=== PATIENT | female | born 1950 | race Caucasian/White ===

== ENCOUNTER 2018-07-28 15:41 | Observation (INO) ==
[2018-07-28 16:15] LABS: Basophils % 0.1 %; Eosinophils # 0.5 K/mcL (0.0-0.6); Hematocrit 37.3 % (35.3-44.9); Hemoglobin 12.2 g/dL (11.5-15.4); Immature Granulocytes % 0.1 % (0-4); Lymphocytes # 1.3 K/mcL (0.6-4.6); Lymphocytes % 14.7 %; Mean Corpuscular HGB Conc 32.7 g/dL (31.6-35.5); Mean Corpuscular Hemoglobin 32.4 pg (28.0-33.3); Mean Corpuscular Volume 99.2 fL (83.0-100.0); Mean Platelet Volume 9.2 fL (9.4-12.4); Monocytes # 0.6 K/mcL (0.0-1.3); Monocytes % 6.7 %; Neutrophils # 6.3 K/mcL (1.6-8.9); Platelet Count 249 K/mcL (140-400); Red Blood Count 3.76 M/mcL (3.82-4.97); Red Cell Distribution Width 14.8 % (11.5-14.5); Segmented Neutrophils % 72.4 %
--- NOTE | 2018-07-28 16:37 | Emergency Department Note ---
Disposition Clinical Impression: Exercise intolerance Atrial fibrillation Qualifiers: Atrial fibrillation type: unspecified Qualified Code(s): I48.91 - Unspecified atrial fibrillation Dyspnea Qualifiers: Dyspnea type: dyspnea on exertion Qualified Code(s): R06.09 - Other forms of dyspnea Hypothyroid Qualifiers: Hypothyroidism type: unspecified Qualified Code(s): E03.9 - Hypothyroidism, unspecified Disposition: Admitted As Inpatient Condition: Fair Time of Disposition: 21:43 General Adult HPI - General Chief complaint: ED Arrhythmia/Palpitations Stated complaint: new onset A-fib Time Seen by Provider: 07/28/18 16:20 Source: patient Limitations: no limitations Nursing Notes Reviewed: Yes Vital Signs Reviewed: Yes - History of Present Illness HPI Narrative: 68-year-old female presents from home with bedside for evaluation of shortness of breath and exercise intolerance. Patient notes this is been persistent for the past 3+ months and progressively worsening. She has avoided evaluation thinking it would improve on its own. 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 Patient also notes increased bilateral lower extremity swelling. History of hypertension on metoprolol, hyperlipidemia, type 2 diabetes on metformin. No history of cardiac or pulmonary disease. No history of cardiac dysrhythmias. Has never smoked. ROS: Positive: Shortness of breath, exercise intolerance, lower extremity swelling Negative: Fever, chills, nausea, vomiting, chest pains, palpitations, diaphoresis, unusual back pain Pain Scale: 0 - Related Data Home Medications Medication Instructions Recorded Confirmed Aspirin [Lo-Dose Aspirin EC] 81 mg PO DAILY 05/30/17 07/28/18 Metformin HCl [Glucophage] 1,000 mg PO BID 05/30/17 07/28/18 Metoprolol Succinate 50 mg PO DAILY 05/30/17 07/28/18 Naproxen 500 mg PO BID 05/30/17 07/28/18 Oxybutynin [Ditropan] 10 mg PO BID 05/30/17 07/28/18 Ranitidine HCl [Acid Certified Diabetes Educator] 150 mg PO BID 05/30/17 07/28/18 carBAMazepine [Tegretol] 200 mg PO HS 05/30/17 07/28/18 carBAMazepine [Tegretol] 400 mg PO QAM 05/30/17 07/28/18 Docusate [Colace] 200 mg PO HS PRN 07/28/18 07/28/18 Furosemide [Lasix] 40 mg PO DAILY 07/28/18 07/28/18 Glimepiride [Amaryl] 4 mg PO DAILY 07/28/18 07/28/18 Lovastatin 40 mg PO QPM 07/28/18 07/28/18 Allergies Allergy/AdvReac Type Severity Reaction Status Date / Time propoxyphene [From Darvon] AdvReac Dizziness Verified 06/27/17 10:26 Uqbguqt-Lpv-Qeu Reductase AdvReac Cramping Verified 06/27/17 10:26 Inhibitor of the [Statins] Muscles All systems ED: reviewed and negative except as stated. Review of Systems: As Per HPI Past Medical History - Past Medical History Medical history: Reports: atrial fibrillation, diabetes, hyperlipidemia, hypertension, other Surgical history: Reports: other Psychiatric history: Reports: bipolar, schizophrenia - Social History Smoking Status: Never smoker Smokeless Tobacco Status: No Alcohol use: Reports: none Drug use: Reports: none Physical Exam Vital Signs Reviewed General: Patient is alert, oriented, and in no acute distress resting in the ED cot. She does have 4-5 word conversational dyspnea. Head: atraumatic, normocephalic Eye: normal appearance, PERRL, EOMI, no scleral icterus, no conjunctival injection ENT: mucous membranes moist, normal external ear exam Neck: normal inspection, trachea midline, full ROM Chest: normal inspection, symmetric chest rise Respiratory: Good respiratory effort. Bilateral breath sounds in the anterior and posterior lucas are clear without wheezing, crackles, or rhonchi. Cardiovascular: Regular rate and rhythm. No clicks, rubs, gallops, or murmors. Normal heart sounds. 2+ pitting edema bilaterally in the lower extremities. Abdomen: Bowel sounds present normoactive. Abdomen is soft, nondistended, and nontender. No guarding or rebound. No organomegaly noted. Musculoskeletal: Spontaneously moving all extremities. Skin: warm, dry Neuro: GCS 15. No focal neurologic deficits observed. Psych: Patient's affect is appropriate for situation. - General Limitations: no limitations General appearance: alert, in no apparent distress Course Course Narrative: Patient was dyspneic on transitioning from bedside wheelchair to the bed itself. EKG is concerning for new onset atrial fibrillation. She is incidentally rate controlled suspected from her metoprolol currently used as an antihypertensive. The patient is new onset A. fib and rate controlled, clinically concerned for possibly new onset CHF given her profound exercise intolerance. EKG dated 28 Jul 2018 at 16:09 interpreted as atrial fibrillation with rate of 86. No P waves. Irregular intervals. Compared to previous EKG dated 06/10/2017 showing new onset atrial fibrillation today. Serum hematology is unremarkable. Serum chemistry shows hypothyroidism with TSH 5.8. Free T3 and T4 ordered to assist in patient evaluation. Chest x-ray shows cardiomegaly otherwise unremarkable. I discussed the above with the admitting hospitalist, Dr. Kim, who agrees to accept the patient for continued evaluation monitoring for new onset A. fib as well as her dyspnea and exercise intolerance. Chest X-Ray 07/28/18 15:58 IMPRESSION: Cardiomegaly. No acute cardiopulmonary process. D/ / Andrew Johnson MD / Andrew Johnson MD Interpreting Provider: Andrew Johnson MD Vital Signs Temperature 98.0 F 07/28/18 15:50 Pulse Rate 84 07/28/18 15:50 Respiratory Rate 18 07/28/18 15:50 Blood Pressure 160/99 07/28/18 15:50 O2 Sat by Pulse Oximetry 99 07/28/18 15:50 Temperature 98.0 F 07/28/18 15:50 Pulse Rate 76 07/28/18 17:54 Respiratory Rate 24 07/28/18 20:20 Blood Pressure 164/118 07/28/18 20:20 O2 Sat by Pulse Oximetry 98 07/28/18 17:54 Oxygen Delivery Oxygen Delivery Room Air Medical Decision Making - Lab Data Result diagrams: 07/29/18 00:50 07/29/18 00:50 Lab Results 07/28/18 07/28/18 07/28/18 Range/Units 16:03 16:03 17:44 WBC 8.7 8.1 (4.3-11.1) K/mcL RBC 3.76 L 3.86 (3.82-4.97) M/mcL Hgb 12.2 12.4 (11.5-15.4) g/dL Hct 37.3 39.1 (35.3-44.9) % MCV 99.2 101.3 H (83.0-100.0) fL MCH 32.4 32.1 (28.0-33.3) pg MCHC 32.7 31.7 (31.6-35.5) g/dL RDW 14.8 H 15.1 H (11.5-14.5) % Plt Count 249 258 (140-400) K/mcL MPV 9.2 L 9.3 L (9.4-12.4) fL Immature Gran % 0.1 (0-4) % Seg Neutrophils % 72.4 % Lymphocytes % 14.7 % Monocytes % 6.7 % Eosinophils % 6.0 % Basophils % 0.1 % Neutrophils # 6.3 (1.6-8.9) K/mcL Lymphocytes # 1.3 (0.6-4.6) K/mcL Monocytes # 0.6 (0.0-1.3) K/mcL Eosinophils # 0.5 (0.0-0.6) K/mcL Basophils # 0.0 (0.0-0.2) K/mcL PT (9.4-12.1) Seconds INR Heparin Anti-Xa, Unfract (0.30-0.70) IU/mL Sodium 139 (136-145) mEq/L Potassium 4.6 (3.5-5.1) mEq/L Chloride 105 (98-107) mEq/L Carbon Dioxide 23 (23-29) mEq/L BUN 29 H (8-23) mg/dL Creatinine 0.96 (0.60-1.20) mg/dL Est GFR ( Amer) > 60 (> 60) Est GFR (Non-Af Amer) 58 L (> 60) BUN/Creatinine Ratio 30 H (6-26) Glucose 158 H (70-105) mg/dL Calculated Osmolality 297 (280-300) Calcium 9.9 (8.6-10.3) mg/dL Magnesium 1.7 (1.6-2.6) mg/dL Troponin I 0.03 (< 0.04) ng/mL TSH 5.810 H (0.340-5.600) mcIU/mL Free T4 0.80 (0.70-2.00) ng/dl Free T3 2.73 (2.50-3.90) pg/mL 07/28/18 Range/Units 17:44 WBC (4.3-11.1) K/mcL RBC (3.82-4.97) M/mcL Hgb (11.5-15.4) g/dL Hct (35.3-44.9) % MCV (83.0-100.0) fL MCH (28.0-33.3) pg MCHC (31.6-35.5) g/dL RDW (11.5-14.5) % Plt Count (140-400) K/mcL MPV (9.4-12.4) fL Immature Gran % (0-4) % Seg Neutrophils % % Lymphocytes % % Monocytes % % Eosinophils % % Basophils % % Neutrophils # (1.6-8.9) K/mcL Lymphocytes # (0.6-4.6) K/mcL Monocytes # (0.0-1.3) K/mcL Eosinophils # (0.0-0.6) K/mcL Basophils # (0.0-0.2) K/mcL PT 12.2 H (9.4-12.1) Seconds INR 1.1 Heparin Anti-Xa, Unfract 0.00 L (0.30-0.70) IU/mL Sodium (136-145) mEq/L Potassium (3.5-5.1) mEq/L Chloride (98-107) mEq/L Carbon Dioxide (23-29) mEq/L BUN (8-23) mg/dL Creatinine (0.60-1.20) mg/dL Est GFR ( Amer) (> 60) Est GFR (Non-Af Amer) (> 60) BUN/Creatinine Ratio (6-26) Glucose (70-105) mg/dL Calculated Osmolality (280-300) Calcium (8.6-10.3) mg/dL Magnesium (1.6-2.6) mg/dL Troponin I (< 0.04) ng/mL TSH (0.340-5.600) mcIU/mL Free T4 (0.70-2.00) ng/dl Free T3 (2.50-3.90) pg/mL Attestation Statement - Attestation Attestation: I have seen this patient with the resident physician, I have personally evaluated this patient. I had reviewed the chart and document dictation by the resident physician and aM in agreement with the information documented by the resident physician. Please see documentation by the resident physician for complete chart including past medical history, family medical history, review of systems, current history and physical and laboratory and imaging studies. I was present for all procedures, provided direct supervision for all procedures, was present for the entirety of all procedures and provided direct guidance during the procedures. Please see documentation by the resident physician for any procedures performed.
[2018-07-28 16:53] LABS: BUN/Creatinine Ratio 30 (6-26); Blood Urea Nitrogen 29 mg/dL (8-23); Calcium 9.9 mg/dL (8.6-10.3); Carbon Dioxide 23 mEq/L (23-29); Chloride 105 mEq/L (98-107); Glucose 158 mg/dL (70-105); Osmolality,Calculated 297 (280-300); Potassium 4.6 mEq/L (3.5-5.1); Sodium 139 mEq/L (136-145); Troponin I 0.03 ng/mL (< 0.04); eGFR For Non-African Americans 58 (> 60)
[2018-07-28] MEDS ORDERED: *HR* Heparin 5,000 UNIT/ML VIAL IVP ONE ×2 (17:22→17:33)
[2018-07-28] MEDS ORDERED: *HR* Heparin 5,000 UNIT/ML VIAL IVP PRN ×4 (17:22→17:33)
--- NOTE | 2018-07-28 17:24 | Emergency Department Note ---
Disposition Clinical Impression: Exercise intolerance Atrial fibrillation Qualifiers: Atrial fibrillation type: unspecified Qualified Code(s): I48.91 - Unspecified atrial fibrillation Dyspnea Qualifiers: Dyspnea type: dyspnea on exertion Qualified Code(s): R06.09 - Other forms of dyspnea Disposition: Admitted As Inpatient Condition: Fair Forms: ED Satisfaction Letter General Adult HPI - General Chief complaint: ED Arrhythmia/Palpitations Stated complaint: new onset A-fib Time Seen by Provider: 07/28/18 16:20 Source: patient Limitations: no limitations - History of Present Illness Pain Scale: 0 - Related Data Home Medications Medication Instructions Recorded Confirmed Aspirin [Lo-Dose Aspirin EC] 81 mg PO DAILY 05/30/17 06/27/17 Furosemide [Lasix] 20 mg PO DAILY PRN 05/30/17 06/27/17 Lovastatin [Mevacor] 20 mg PO HS 05/30/17 06/27/17 Metformin HCl [Glucophage] 1,000 mg PO BID 05/30/17 06/27/17 Metoprolol Succinate 50 mg PO DAILY 05/30/17 06/27/17 Naproxen 500 mg PO BID 05/30/17 06/27/17 Oxybutynin [Ditropan] 10 mg PO BID 05/30/17 06/27/17 Ranitidine HCl [Acid Novelties Sales Representative] 150 mg PO BID 05/30/17 06/27/17 carBAMazepine [Tegretol] 200 mg PO HS 05/30/17 06/27/17 carBAMazepine [Tegretol] 400 mg PO QAM 05/30/17 06/27/17 Allergies Allergy/AdvReac Type Severity Reaction Status Date / Time propoxyphene [From Darvon] AdvReac Dizziness Verified 06/27/17 10:26 Lsbjldi-Uua-Pax Reductase AdvReac Cramping Verified 06/27/17 10:26 Inhibitor of the [Statins] Muscles Past Medical History - Past Medical History Medical history: Reports: atrial fibrillation, diabetes, hyperlipidemia, hypertension, other Surgical history: Reports: other Psychiatric history: Reports: bipolar, schizophrenia - Social History Smoking Status: Never smoker Smokeless Tobacco Status: No Alcohol use: Reports: none Drug use: Reports: none Physical Exam - General Limitations: no limitations General appearance: alert, in no apparent distress Course Vital Signs Temperature 98.0 F 07/28/18 15:50 Pulse Rate 84 07/28/18 15:50 Respiratory Rate 18 07/28/18 15:50 Blood Pressure 160/99 07/28/18 15:50 O2 Sat by Pulse Oximetry 99 07/28/18 15:50 Temperature 98.0 F 07/28/18 15:50 Pulse Rate 101 07/28/18 16:27 Respiratory Rate 22 07/28/18 16:27 Blood Pressure 171/111 07/28/18 16:27 O2 Sat by Pulse Oximetry 99 07/28/18 16:27 Oxygen Delivery Oxygen Delivery Room Air Medical Decision Making - Lab Data Result diagrams: 07/28/18 16:03 07/28/18 16:03 Lab Results 07/28/18 07/28/18 Range/Units 16:03 16:03 WBC 8.7 (4.3-11.1) K/mcL RBC 3.76 L (3.82-4.97) M/mcL Hgb 12.2 (11.5-15.4) g/dL Hct 37.3 (35.3-44.9) % MCV 99.2 (83.0-100.0) fL MCH 32.4 (28.0-33.3) pg MCHC 32.7 (31.6-35.5) g/dL RDW 14.8 H (11.5-14.5) % Plt Count 249 (140-400) K/mcL MPV 9.2 L (9.4-12.4) fL Immature Gran % 0.1 (0-4) % Seg Neutrophils % 72.4 % Lymphocytes % 14.7 % Monocytes % 6.7 % Eosinophils % 6.0 % Basophils % 0.1 % Neutrophils # 6.3 (1.6-8.9) K/mcL Lymphocytes # 1.3 (0.6-4.6) K/mcL Monocytes # 0.6 (0.0-1.3) K/mcL Eosinophils # 0.5 (0.0-0.6) K/mcL Basophils # 0.0 (0.0-0.2) K/mcL Sodium 139 (136-145) mEq/L Potassium 4.6 (3.5-5.1) mEq/L Chloride 105 (98-107) mEq/L Carbon Dioxide 23 (23-29) mEq/L BUN 29 H (8-23) mg/dL Creatinine 0.96 (0.60-1.20) mg/dL Est GFR ( Amer) > 60 (> 60) Est GFR (Non-Af Amer) 58 L (> 60) BUN/Creatinine Ratio 30 H (6-26) Glucose 158 H (70-105) mg/dL Calculated Osmolality 297 (280-300) Calcium 9.9 (8.6-10.3) mg/dL Troponin I 0.03 (< 0.04) ng/mL TSH 5.810 H (0.340-5.600) mcIU/mL Attestation Statement - Attestation Attestation: I have seen this patient with the resident physician, I have personally evaluated this patient. I had reviewed the chart and document dictation by the resident physician and aM in agreement with the information documented by the resident physician. Please see documentation by the resident physician for complete chart including past medical history, family medical history, review of systems, current history and physical and laboratory and imaging studies. I was present for all procedures, provided direct supervision for all procedures, was present for the entirety of all procedures and provided direct guidance during the procedures. Please see documentation by the resident physician for any procedures performed. Patient presents emergency Department with chief complaint of 3 months of progressively increasing bilateral lower extremity edema exertional shortness of breath. She has chronic orthopnea and sleeps with CPAP no changes there. She has not had any chest pain. No specific palpitations. She denies fevers chills cough sputum production abdominal pain nausea or vomiting. Upon presentation, patient found to be in new onset atrial fibrillation although rate controlled, patient is on metoprolol for hypertension. EKG showed nonspecific T-wave abnormality without evidence of ST elevation or ST depression. A basic laboratory studies were within acceptable limits. Chest x-ray showed no acute findings. Patient is 68 years old history of hypertension diabetes high cholesterol with symptoms concerning for potential CHF with peripheral edema progressing over the last 3 months with worsening shortness of breath, she does appear conversationally dyspneic but is without hypoxia, I believe that likely this is related to new onset A. fib has had no recent cardiac evaluation and has not been to her doctor, she will be admitted for further evaluation and management of shortness of breath, new onset atrial fibrillation and peripheral edema. She is on aspirin every day she is not on any other blood thinner she has had no recent surgery travel or immobilization no unilateral swelling she is not hypoxic she is not tachycardic she has no pleuritic chest pain, and has no evidence currently to suggest pulmonary embolism, she does have new onset A. fib with symptoms now for 3 months, she will be started on heparin for new onset atrial fibrillation, further evaluation as necessary for further causes of short ness of breath in the hospital. Again she is not tachycardic she is not hypoxic, has no calf pain no pleuritic pain, and nothing clinically to suggest DVT or pulmonary embolism in the ER.
[2018-07-28] MEDS ORDERED: Heparin 25,000 UNIT/250 ML D5W 25,000 UNIT/250 ML IV.SOLN IVC SCH (17:30)
[2018-07-28 17:49] LABS: Magnesium 1.7 mg/dL (1.6-2.6)
[2018-07-28 17:54] LABS: Hematocrit 39.1 % (35.3-44.9); Hemoglobin 12.4 g/dL (11.5-15.4); Mean Corpuscular HGB Conc 31.7 g/dL (31.6-35.5); Mean Corpuscular Hemoglobin 32.1 pg (28.0-33.3); Mean Corpuscular Volume 101.3 fL (83.0-100.0); Mean Platelet Volume 9.3 fL (9.4-12.4); Platelet Count 258 K/mcL (140-400); Red Blood Count 3.86 M/mcL (3.82-4.97); Red Cell Distribution Width 15.1 % (11.5-14.5)
[2018-07-28 18:02] LABS: INR 1.1; Prothrombin Time 12.2 Seconds (9.4-12.1)
[2018-07-28] MEDS: Heparin 25,000 UNIT/250 ML D5W 25,000 UNIT/250 ML IV.SOLN IVC SCH (18:07)
[2018-07-28 18:33] LABS: Triiodothyronine (T3) Free 2.73 pg/mL (2.50-3.90)
[2018-07-28] MEDS ORDERED: Naloxone 0.4 MG/ML INJ IVP PRN (19:22)
[2018-07-28] MEDS ORDERED: Ondansetron 4 MG/2 ML VIAL IVP PRN (19:22)
[2018-07-28] MEDS ORDERED: Perflutren Lipid Microsphere 1.3 ML in 0.9 % Sodium Chloride 8.7 ML IVP ONE (20:26)
[2018-07-28] MEDS ORDERED: Insulin LISPRO 300 UNITS/3 ML VIAL SQ SCH (21:00)
[2018-07-28] MEDS ORDERED: carBAMazepine 200 MG TABLET PO SCH (21:00)
--- NOTE | 2018-07-28 21:06 | Internal Med History&Physical ---
Date of Encounter: 07/28/18 Time of Encounter: 19:45 Internal Medicine - H&P: HPI Chief complaint: Dyspnea on exertion Admitted From: Home History of present illness: Ms. Tejeda is a 68 year old female with history of morbid obesity, hypertension, diabetes, hyperlipidemia, sleep apnea on CPAP, who presented to the ED with 2 month history of progressive dyspnea. Worse on exertion, associated with intermittent palpitation without chest pain, and she also endorses worsening bilateral leg swelling. Denies any orthopnea or PND. No fever/chills, nausea/vomiting, diaphoresis, or GI/ symptoms. No history of CAD. In the ED, she was afebrile and hemodynamically stable. EKG incidentally noted A. fib with controlled ventricular rate without STT changes concerning for ischemia. Labwork otherwise were unremarkable with normal troponin. Mild macrocytosis noted. TSH 5.8 with normal free T4 and T3. She was started on heparin drip and admitted for further management. Past Med Surg Social Fam HX - Past Medical History Attestation: Yes The following information was validated with the patient. Medical history: diabetes, hyperlipidemia, hypertension, other Additional medical history: sleep apnea, increased cholesterol, overactive bladder, hypertension, aneurysm Psychiatric history: bipolar, schizophrenia - Past Surgical History Surgical History: other Additional surgical history: bilateral knee replacement, bladder tuck, colono scopy - Social History Smoking Status: Never smoker Smokeless Tobacco Status: No Alcohol use: none Drug use: none - Additional Family History Additional family history: No family history of premature CAD Internal Medicine - H&P: Meds Aspirin [Lo-Dose Aspirin EC] 81 mg PO DAILY 05/30/17 [History] Metformin HCl [Glucophage] 1,000 mg PO BID 05/30/17 [History] Metoprolol Succinate 50 mg PO DAILY 05/30/17 [History] Naproxen 500 mg PO BID 05/30/17 [History] Oxybutynin [Ditropan] 10 mg PO BID 05/30/17 [History] Ranitidine HCl [Acid Software Writer] 150 mg PO BID 05/30/17 [History] carBAMazepine [Tegretol] 200 mg PO HS 05/30/17 [History] carBAMazepine [Tegretol] 400 mg PO QAM 05/30/17 [History] Docusate [Colace] 200 mg PO HS PRN 07/28/18 [History] Furosemide [Lasix] 40 mg PO DAILY 07/28/18 [History] Glimepiride [Amaryl] 4 mg PO DAILY 07/28/18 [History] Lovastatin 40 mg PO QPM 07/28/18 [History] Allergy/AdvReac Type Severity Reaction Status Date / Time propoxyphene [From Darvon] AdvReac Dizziness Verified 06/27/17 10:26 [place]-Ocu-Xch Reductase AdvReac Cramping Verified 06/27/17 10:26 Inhibitor of the [Statins] Muscles All Systems PM: A 10-system review of systems was performed and is negative for pertinent findings except as documented above in the HPI. - Constitutional Vitals: Temp Pulse Resp BP Pulse Ox 98.0 F 76 24 164/118 98 07/28/18 15:50 07/28/18 17:54 07/28/18 20:20 07/28/18 20:20 07/28/18 17:54 Exam: General: Alert and oriented, mild distress. Obese HEENT:EOMI, pupils equal, round and reactive. Cardiovascular:Normal S1 & S2, No JVD. Pulse irregular with normal rate. 2+ pitting LE edema bilaterally Lungs: Diminished due to body habitus, unable to appreciate any rhonchi/Rales Abdomen:Soft, non-tender, no rigidity. Extremities:No deformity or joint swelling Neurological:Normal cognition and motor skills. Non-focal Skin:Normal color, no rash, no lesions. Pulses:Carotid and radial pulses normal +2. Rest of the physical exam is non contributory Internal Med - H&P Results - Labs CBC & Chem 7: 07/28/18 17:44 07/28/18 16:03 Labs: Short CBC 07/28/18 07/28/18 Range/Units 16:03 17:44 WBC 8.7 8.1 (4.3-11.1) K/mcL Hgb 12.2 12.4 (11.5-15.4) g/dL Hct 37.3 39.1 (35.3-44.9) % Plt Count 249 258 (140-400) K/mcL Neutrophils # 6.3 (1.6-8.9) K/mcL BMP 07/28/18 16:03 Sodium 139 Potassium 4.6 Chloride 105 Carbon Dioxide 23 BUN 29 H Creatinine 0.96 Glucose 158 H Calcium 9.9 Cardiac Enzymes 07/28/18 Range/Units 16:03 Troponin I 0.03 (< 0.04) ng/mL - Impressions ITS Impressions Chest X-Ray 07/28/18 15:58 IMPRESSION: Cardiomegaly. No acute cardiopulmonary process. D/ / Andrew Johnson MD / Andrew Johnson MD Interpreting Provider: Andrew Johnson MD - Assessment and Plan (1) Atrial fibrillation Current Visit: Yes Status: Acute Assessment and plan: Presented with progressively worsening dyspnea on exertion and found to be in new onset of A. fib with controlled ventricular rate (on bb at home) associated with possible decompensated heart failure, no prior echo CHADSVASC of 4 for age, sex, HTN, DM started on heparin gtt, continue Resume home dose of beta missy Monitor electrolytes on Lasix Echocardiogram Qualifiers: Atrial fibrillation type: unspecified Qualified Code(s): I48.91 - Unspecified atrial fibrillation (2) CHF (congestive heart failure) Current Visit: Yes Status: Acute Assessment and plan: Although her symptoms could represent symptomatic afib, it can also be consistent with mild decompensated heart failure Chest x-ray did not show any overt probably vascular congestion or pleural effusion. Patient is on room air saturating well but tachypneic Check BNP although it may not be accurate in the setting of morbid obesity Rule out ACS by trending troponin Echocardiogram Will give 1 dose of IV Lasix today and resume home dose from tomorrow morning Qualifiers: Heart failure type: unspecified Heart failure chronicity: acute Qualified Code(s): I50.9 - Heart failure, unspecified (3) Diabetes Current Visit: Yes Status: Chronic Assessment and plan: Hold off on home meds, sliding scale coverage Qualifiers: Diabetes mellitus type: type 2 Diabetes mellitus nursing home insulin use: without intermodal dispatcher use Diabetes mellitus complication status: with unspecified complications Qualified Code(s): E11.8 - Type 2 diabetes mellitus with unspecified complications (4) Sleep apnea Current Visit: Yes Status: Chronic Assessment and plan: CPAP at HS Qualifiers: Sleep apnea type: unspecified type Qualified Code(s): G47.30 - Sleep apnea, unspecified (5) Morbid obesity with BMI of 50.0-59.9, adult Current Visit: Yes Status: Chronic Assessment and plan: Lifestyle modifications emphasized (6) Hypothyroid Current Visit: Yes Status: Chronic Assessment and plan: TSH noted to be mildly elevated with normal free T4 and T3 Would not treat with levothyroxine in the setting of new onset of A. fib, repeat TSH outpatient in 4-6 weeks. Qualifiers: Hypothyroidism type: unspecified Qualified Code(s): E03.9 - Hypothyroidism, unspecified (7) DVT prophylaxis Current Visit: Yes Status: Acute Assessment and plan: On heparin drip - Time Spent With Patient Total time spent is greater than 50% in coordination of care (as documented) at patient's floor/unit and/or counseling patient: Greater than 35 minutes
[2018-07-28] MEDS ORDERED: Furosemide 40 MG/4 ML VIAL IVP ONE (21:07)
[2018-07-28] MEDS ORDERED: D5% in Water 1,000 ML IVC PRN (21:12)
[2018-07-28] MEDS ORDERED: Dextrose Gel 15 GM/37.5 ML TUBE PO PRN ×2 (21:12)
[2018-07-28] MEDS ORDERED: *HR* Dextrose 50 % in Water (Syg) 50 ML SYRINGE IVP PRN (21:12)
[2018-07-28] MEDS: Famotidine 20 MG TABLET PO SCH (22:16)
[2018-07-29 01:13] LABS: Basophils % 0.1 %; Eosinophils # 0.5 K/mcL (0.0-0.6); Eosinophils % 6.4 %; Hematocrit 36.6 % (35.3-44.9); Hemoglobin 11.7 g/dL (11.5-15.4); Immature Granulocytes % 0.3 % (0-4); Lymphocytes # 1.5 K/mcL (0.6-4.6); Lymphocytes % 18.7 %; Mean Corpuscular Hemoglobin 32.3 pg (28.0-33.3); Mean Corpuscular Volume 101.1 fL (83.0-100.0); Mean Platelet Volume 9.3 fL (9.4-12.4); Monocytes # 0.6 K/mcL (0.0-1.3); Neutrophils # 5.4 K/mcL (1.6-8.9); Platelet Count 272 K/mcL (140-400); Red Blood Count 3.62 M/mcL (3.82-4.97); Red Cell Distribution Width 15.1 % (11.5-14.5); Segmented Neutrophils % 67.5 %
[2018-07-29 01:34] LABS: BUN/Creatinine Ratio 27 (6-26); Blood Urea Nitrogen 26 mg/dL (8-23); Calcium 9.4 mg/dL (8.6-10.3); Carbon Dioxide 27 mEq/L (23-29); Chloride 103 mEq/L (98-107); Glucose 156 mg/dL (70-105); Magnesium 1.6 mg/dL (1.6-2.6); Osmolality,Calculated 296 (280-300); Potassium 3.9 mEq/L (3.5-5.1); Sodium 139 mEq/L (136-145); eGFR For Non-African Americans 57 (> 60)
[2018-07-29 02:21] LABS: Folate 18.9 ng/mL (3.0-16.0)
[2018-07-29] MEDS: Famotidine 20 MG TABLET PO SCH (07:56)
[2018-07-29] MEDS: Heparin 25,000 UNIT/250 ML D5W 25,000 UNIT/250 ML IV.SOLN IVC SCH (07:58)
[2018-07-29] MEDS: Insulin LISPRO 300 UNITS/3 ML VIAL SQ SCH ×2 (08:11→12:08)
[2018-07-29] MEDS ORDERED: Furosemide 40 MG TABLET PO SCH (09:00)
[2018-07-29] MEDS ORDERED: carBAMazepine 200 MG TABLET PO SCH (09:00)
[2018-07-29] MEDS ORDERED: Metoprolol XL (24 HR) Succ 50 MG TAB.ER.24H PO SCH (09:00)
[2018-07-29] MEDS ORDERED: Aspirin Enteric Coated 81 MG Tablet PO SCH (09:00)
[2018-07-29] MEDS ORDERED: *HR* Warfarin 5 MG TABLET PO ONE (15:32)
[2018-07-29] MEDS ORDERED: Furosemide 40 MG/4 ML VIAL IVP ONE (15:33)
[2018-07-29 15:42] VITALS: BP 157/82
--- NOTE | 2018-07-29 15:42 | Discharge Summary ---
- NOTES TO OUTPATIENT PROVIDER Notes to Outpatient Provider: f/u with PCP in one week. f/u with Cardiology Dr. Barker in 2-3 weeks. Gagease take Lasix 40mg PO BID x 5 days then continue Daily. Check daily weight, if you gain more than 2 lbs, take an extra dose of Lasix and call your PCP. Please take Coumadin 5 mg PO Daily x 2 days and go for PT / INR at [facility] on Friday . Coumadin clinic will f/u on your coumaidn further dosing Date of Encounter: 07/29/18 Time of Encounter: 15:40 - Discharge Diagnosis (1) Atrial fibrillation Priority: Primary Status: Acute Qualifiers: Atrial fibrillation type: unspecified Qualified Code(s): I48.91 - Unspecified atrial fibrillation (2) CHF (congestive heart failure) Priority: Primary Status: Acute Qualifiers: Heart failure type: diastolic Heart failure chronicity: acute Qualified Code(s): I50.31 - Acute diastolic (congestive) heart failure (3) Hypothyroid Priority: Secondary Status: Chronic Qualifiers: Hypothyroidism type: unspecified Qualified Code(s): E03.9 - Hypothyroidism, unspecified (4) Diabetes Priority: Secondary Status: Chronic Qualifiers: Diabetes mellitus type: type 2 Diabetes mellitus watermelon inspector insulin use: without watermelon inspector use Diabetes mellitus complication status: with unspecified complications Qualified Code(s): E11.8 - Type 2 diabetes mellitus with unspecified complications (5) Sleep apnea Priority: Secondary Status: Chronic Qualifiers: Sleep apnea type: unspecified type Qualified Code(s): G47.30 - Sleep apnea, unspecified (6) Morbid obesity with BMI of 50.0-59.9, adult Priority: Secondary Status: Chronic (7) DVT prophylaxis Priority: Secondary Status: Acute Hospital course: Ms. Tejeda is a 68 year old female with history of morbid obesity, hypertension, diabetes, hyperlipidemia, sleep apnea on CPAP and CHF pt presented to the ED with 2 month history of progressive worsening SOB and dyspnea. Worse on exertion, associated with intermittent palpitation without chest pain, and she also endorses worsening bilateral leg swelling. In the ER her EKG incidentally noted A. fib with controlled ventricular rate without STT changes concerning for ischemia. Lab work otherwise were unremarkable with normal troponin. She was admitted in the hospital and placed on surveillance monitor. Continued home medication metoprolol. Her serial troponin came back as negative. Patient heart rate well-controlled with metoprolol. She does have acute on chronic diastolic CHF exacerbation. She was given IV lasix, pt stated she is feeling better today. Her CHADSVASC score is 4 , so placed her on Coumadin for anti coag. Will d/c her home in stable condition today. For her Coumadin recommend to [facility] with Coumadin clinic. - Time Spent with Patient Total time spent providing and/or coordinating discharge services: - Discharge Medications Prescriptions: New Warfarin [Coumadin] 5 mg PO 1800 #30 tablet Continued Aspirin [Lo-Dose Aspirin EC] 81 mg PO DAILY carBAMazepine [Tegretol] 400 mg PO QAM carBAMazepine [Tegretol] 200 mg PO HS Metformin HCl [Glucophage] 1,000 mg PO BID Metoprolol Succinate 50 mg PO DAILY Oxybutynin [Ditropan] 10 mg PO BID Ranitidine HCl [Acid Liquid Fertilizer Servicer] 150 mg PO BID Docusate [Colace] 200 mg PO HS PRN PRN Reason: Constipation Glimepiride [Amaryl] 4 mg PO DAILY Lovastatin 40 mg PO QPM Changed Furosemide [Lasix] 40 mg PO BID #45 tablet Discontinued Naproxen 500 mg PO BID Home Medications: Aspirin [Lo-Dose Aspirin EC] 81 mg PO DAILY 05/30/17 [History] Metformin HCl [Glucophage] 1,000 mg PO BID 05/30/17 [History] Metoprolol Succinate 50 mg PO DAILY 05/30/17 [History] Oxybutynin [Ditropan] 10 mg PO BID 05/30/17 [History] Ranitidine HCl [Acid Liquid Fertilizer Servicer] 150 mg PO BID 05/30/17 [History] carBAMazepine [Tegretol] 200 mg PO HS 05/30/17 [History] carBAMazepine [Tegretol] 400 mg PO QAM 05/30/17 [History] Docusate [Colace] 200 mg PO HS PRN 07/28/18 [History] Glimepiride [Amaryl] 4 mg PO DAILY 07/28/18 [History] Lovastatin 40 mg PO QPM 07/28/18 [History] Furosemide [Lasix] 40 mg PO BID #45 tablet 07/29/18 [Rx] Warfarin [Coumadin] 5 mg PO 1800 #30 tablet 07/29/18 [Rx] Allergies/Adverse Reactions: Allergy/AdvReac Type Severity Reaction Status Date / Time propoxyphene [From Darvon] AdvReac Dizziness Verified 06/27/17 10:26 [id number]-Afa Reductase AdvReac Cramping Verified 06/27/17 10:26 Inhibitor of the [Statins] Muscles Date of admission: 07/28/18 19:57 Primary care physician: Marga Brewer CNP Consults: 07/28/18 19:24 Consult to Physical Therapy [CONS] Stat Comment: Evaluate, develop and implement POC Reason for Consult: morbid obesity, new onset A. fib, deconditioning Does patient have active BEDREST order?: No Is patient medically & hemodynamically stable?: Yes 07/29/18 10:08 Consult to Nurse Navigator [CONS] Routine Comment: CHF - Constitutional Vitals: Temp Pulse Resp BP Pulse Ox 97.7 F 86 16 169/104 95 07/29/18 11:39 07/29/18 11:39 07/29/18 11:39 07/29/18 11:39 07/29/18 11:39 General appearance: Present: A&O X 3, no acute distress, answers questions appropriately Exam: Gen: Alert, awake, Oriented to time,place and person Chest: Diminished breath sounds B/L, No wheezing, No crackles, No rales Heart: S1S2+ Afib, rate controlled, No murmurs Abd: Soft, NT, BS +, No organomegaly Ext: 1+ edema, pulses are palpable, No calf tenderness Neuro : Benign findings Skin: No rash. - Patient Status Disposition: Home, Self-Care Condition: Good Overall status at discharge: patient is back to baseline - Discharge Instructions Follow Up With: Marga Brewer CNP [Primary Care Provider] - Alex Barker DO [Partnered Physician] - - Diet and Activity Activity: increase activity as tolerated Diet: low salt diet
--- NOTE | 2018-07-29 22:03 | Electrocardiograph Report ---
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
== END 2018-07-29 17:32 | disposition home or self-care (01) ==
LOC: EMEROOARM 15:41 → 3BNU 15:41 → SUATTDRO 19:57 → 3BNU 20:21
PROVIDERS: ADMIT Internal Medicine; ATTEND Family Medicine

== ENCOUNTER 2021-07-07 09:32 | Inpatient (IN) ==
[2021-07-07] MEDS ORDERED: 0.9 % Sodium Chloride 1,000 ML ONE ×2 (10:30→17:37)
[2021-07-07] MEDS ORDERED: 0.9 % Sodium Chloride 500 ML IVC ONE ×2 (10:43→14:52)
[2021-07-07 10:59] LABS: Basophils % 0.1 %; Hematocrit 23.9 % (35.3-44.9); Hemoglobin 7.8 g/dL (11.5-15.4); Immature Granulocytes % 0.5 % (0-4); Lymphocytes # 1.8 K/mcL (0.6-4.6); Lymphocytes % 12.7 %; Mean Corpuscular HGB Conc 32.6 g/dL (31.6-35.5); Mean Corpuscular Hemoglobin 31.7 pg (28.0-33.3); Mean Corpuscular Volume 97.2 fL (83.0-100.0); Mean Platelet Volume 9.3 fL (9.4-12.4); Monocytes # 0.9 K/mcL (0.0-1.3); Neutrophils # 11.7 K/mcL (1.6-8.9); Nucleated Red Blood Cells 0.1 /100 WBC (0); Platelet Count 379 K/mcL (140-400); Red Blood Count 2.46 M/mcL (3.82-4.97); Red Cell Distribution Width 14.6 % (11.5-14.5); Segmented Neutrophils % 80.7 %; White Blood Count 14.5 K/mcL (4.3-11.1)
[2021-07-07 11:25] LABS: Bilirubin,Total 1.7 mg/dL (0.3-1.0); Calcium 6.8 mg/dL (8.6-10.3); Globulin 2.9 g/dL (2.4-3.5); Potassium 2.9 mEq/L (3.5-5.1); Total Protein 5.9 g/dL (6.4-8.9); Troponin I 0.06 ng/mL (< 0.04)
[2021-07-07 11:37] LABS: Thyroid Stimulating Hormone 2.398 mcIU/mL (0.340-5.600)
[2021-07-07] MEDS ORDERED: *HR* FentaNYL (PF) 100 MCG/2 ML VIAL IVP ONE ×5 (11:38→20:55)
[2021-07-07] MEDS ORDERED: Pantoprazole 40 MG VIAL IVP ONE (11:40)
[2021-07-07] MEDS ORDERED: Isovue-370 500 ML BOTTLE IVP ONE ×2 (11:56→18:12)
[2021-07-07] MEDS ORDERED: Heparin 25,000UNIT/250ML 1/2NS 25,000 UNIT/250 ML IV.SOLN ONE (12:35)
[2021-07-07 12:46] LABS: Magnesium 0.9 mg/dL (1.6-2.6)
[2021-07-07 13:10] LABS: Bacteria,Urine Few per hpf (None-Few); Bilirubin,Urine Negative (Negative); Blood,Urine Negative (Negative); Clarity,Urine Clear (Clear); Color,Urine Yellow (Yellow); Glucose,Urine (UA) Normal (Normal); Hyaline Casts,Urine Moderate per lpf (None Seen); Ketones,Urine Negative (Negative); Leukocyte Esterase,Urine Negative (Negative); Mucus,Urine Few per lpf (None-Few); Nitrite,Urine Negative (Negative); PH,Urine 5.5 pH Units (5.0-8.0); Protein,Urine 50 mg/dL (Neg-Trace); RBC,Urine 0-3 per hpf (0-3); Specific Gravity,Urine > 1.030 (1.010-1.025); Squamous Epithelial Cell,Urine Few per hpf (None-Few); Urobilinogen,Urine Normal (Normal)
[2021-07-07 14:36] LABS: VBG HCO3 18 mEq/L (21-27); VBG PCO2 32 mmHg (41-51); VBG PH 7.35 pH Units (7.32-7.42); VBG PO2 81 mmHg (25-50)
[2021-07-07] MEDS ORDERED: Magnesium Sulfate 1 GM/102 ML PIGGYBACK IVPB ONE (14:51)
[2021-07-07] MEDS ORDERED: Vancomycin 1,750 MG/517.5 ML IV.SOLN IVPB ONE (14:59)
[2021-07-07] MEDS ORDERED: Piperacillin/Tazobactam 3.375 GM in 0.9 % Sodium Chloride Mini Bag 100 ML IVPB ONE (15:00)
[2021-07-07] MEDS ORDERED: HUM PROTHROMBIN CPLX IVPB ONE (15:36)
[2021-07-07] MEDS ORDERED: [UNRECOGNIZED DRUG - OTHER] IVPB ONE (15:36)
[2021-07-07] MEDS ORDERED: WATER FOR INJ IVPB ONE (15:36)
[2021-07-07 16:28] LABS: ABG Base Excess -7 mEq/L (-2 to 3); ABG HCO3 16 mEq/L (21-27); ABG Oxygen Saturation 99 % (95-98); ABG PCO2 24 mmHg (35-45); ABG PH 7.44 pH Units (7.32-7.45); ABG PO2 138 mmHg (85-104); ABG TCO2 17 mEq/L (20-26)
[2021-07-07 17:28] LABS: Basophils % 0.2 %; Hematocrit 26.8 % (35.3-44.9); Hemoglobin 8.5 g/dL (11.5-15.4); Immature Granulocytes % 0.9 % (0-4); Lymphocytes # 1.6 K/mcL (0.6-4.6); Lymphocytes % 13.7 %; Mean Corpuscular HGB Conc 31.7 g/dL (31.6-35.5); Mean Corpuscular Hemoglobin 29.6 pg (28.0-33.3); Mean Corpuscular Volume 93.4 fL (83.0-100.0); Mean Platelet Volume 9.4 fL (9.4-12.4); Monocytes # 0.9 K/mcL (0.0-1.3); Monocytes % 7.4 %; Neutrophils # 9.1 K/mcL (1.6-8.9); Platelet Count 227 K/mcL (140-400); Red Blood Count 2.87 M/mcL (3.82-4.97); Red Cell Distribution Width 14.8 % (11.5-14.5); Segmented Neutrophils % 77.8 %; White Blood Count 11.7 K/mcL (4.3-11.1)
[2021-07-07] MEDS ORDERED: Calcium Gluconate 1gm/50mL 1 GM/50 ML BAG IVPB ONE (17:32)
[2021-07-07] MEDS ORDERED: 0.9 % Sodium Chloride 250 ML ONE (17:45)
[2021-07-07] MEDS ORDERED: Norepinephrine 4 MG/254 ML IV.SOLN IVC SCH (17:45)
[2021-07-07] MEDS: Norepinephrine 4 MG/254 ML IV.SOLN IVC SCH (17:45)
[2021-07-07] MEDS: Albumin Human 5% 12.5 GM/250 ML IV.SOLN IVC SCH ×3 (18:18→23:08)
[2021-07-07] MEDS ORDERED: Naloxone 0.4 MG/ML INJ IVP PRN (18:42)
[2021-07-07] MEDS ORDERED: *HR* OxyCODONE Immed Rel 5 MG TABLET PO PRN (18:42)
[2021-07-07] MEDS ORDERED: Acetaminophen 325 MG TABLET PO PRN (18:42)
[2021-07-07 18:57] LABS: Fibrinogen 288 mg/dL (169-393); INR 2.6; Prothrombin Time 28.5 Seconds (9.4-12.1)
[2021-07-07 19:06] LABS: Activated Partial Thrombo Time 41.3 Seconds (26.0-36.0)
[2021-07-07 19:07] LABS: D-Dimer 251 ng/mLFEU (0-500)
[2021-07-07] MEDS ORDERED: *HR* Phytonadione 5 MG TABLET PO ONE ×2 (20:00→22:32)
[2021-07-07] MEDS ORDERED: Dextrose 4 GM Chewable Tablets PO PRN ×2 (23:06)
[2021-07-07] MEDS ORDERED: *HR* Dextrose 50 % in Water (Syg) 50 ML SYRINGE IVP PRN (23:06)
[2021-07-07] MEDS ORDERED: D5% in Water 1,000 ML IVC PRN (23:06)
[2021-07-07] MEDS: Pantoprazole 40 MG VIAL IVC SCH (23:08)
[2021-07-07 23:53] LABS: Basophils % 0.1 %; Immature Granulocytes % 0.6 % (0-4); Lymphocytes # 1.8 K/mcL (0.6-4.6); Lymphocytes % 12.9 %; Mean Corpuscular HGB Conc 33.9 g/dL (31.6-35.5); Mean Corpuscular Hemoglobin 29.6 pg (28.0-33.3); Mean Platelet Volume 9.3 fL (9.4-12.4); Monocytes # 1.3 K/mcL (0.0-1.3); Monocytes % 9.3 %; Neutrophils # 10.7 K/mcL (1.6-8.9); Nucleated Red Blood Cells 0.4 /100 WBC (0); Platelet Count 241 K/mcL (140-400); Red Blood Count 3.55 M/mcL (3.82-4.97); Red Cell Distribution Width 15.8 % (11.5-14.5); Segmented Neutrophils % 77.1 %; White Blood Count 13.8 K/mcL (4.3-11.1)
[2021-07-07 23:58] LABS: Activated Partial Thrombo Time 40.6 Seconds (26.0-36.0)
[2021-07-08 00:09] LABS: Albumin 2.9 g/dL (3.5-5.7); Albumin/Globulin Ratio 1.3 (1.1-2.2); Bilirubin,Direct 0.8 mg/dL (0.0-0.2); Bilirubin,Indirect 1.1 mg/dL (0.0-1.0); Bilirubin,Total 1.9 mg/dL (0.3-1.0); Calcium 6.1 mg/dL (8.6-10.3); Globulin 2.2 g/dL (2.4-3.5); Potassium 2.8 mEq/L (3.5-5.1); Total Protein 5.1 g/dL (6.4-8.9)
[2021-07-08] MEDS ORDERED: Ringers Solution, Lactated 500 ML IVC ONE (00:23)
[2021-07-08 00:25] LABS: Hemoglobin 10.5 g/dL (11.5-15.4); Mean Corpuscular Volume 87.3 fL (83.0-100.0)
[2021-07-08 00:44] LABS: Prothrombin Time 43.7 Seconds (9.4-12.1)
[2021-07-08] MEDS: Piperacillin/Tazobactam 3.375 GM in 0.9 % Sodium Chloride Mini Bag 100 ML IVPB SCH ×3 (00:48→16:02)
[2021-07-08] MEDS: Albumin Human 5% 12.5 GM/250 ML IV.SOLN IVC SCH ×4 (00:49→23:00)
[2021-07-08 01:25] LABS: VBG Ionized Calcium 0.76 mmol/L (1.15-1.35)
[2021-07-08] MEDS ORDERED: 0.9 % Sodium Chloride 250 ML ONE ×2 (02:14→04:26)
[2021-07-08] MEDS ORDERED: Calcium Chloride 2,000 MG in 0.9 % Sodium Chloride 100 ML IVPB ONE ×2 (02:30→06:30)
[2021-07-08] MEDS: Norepinephrine 4 MG/254 ML IV.SOLN IVC SCH ×2 (05:51→13:57)
[2021-07-08 05:54] LABS: Basophils % 0.1 %; Eosinophils % 0.1 %; Hematocrit 27.2 % (35.3-44.9); Hemoglobin 9.2 g/dL (11.5-15.4); Immature Granulocytes % 0.6 % (0-4); Lymphocytes # 1.2 K/mcL (0.6-4.6); Lymphocytes % 7.7 %; Mean Corpuscular HGB Conc 33.8 g/dL (31.6-35.5); Mean Corpuscular Hemoglobin 29.3 pg (28.0-33.3); Mean Corpuscular Volume 86.6 fL (83.0-100.0); Mean Platelet Volume 8.9 fL (9.4-12.4); Monocytes # 1.3 K/mcL (0.0-1.3); Monocytes % 8.2 %; Neutrophils # 13.2 K/mcL (1.6-8.9); Nucleated Red Blood Cells 0.3 /100 WBC (0); Platelet Count 225 K/mcL (140-400); Red Blood Count 3.14 M/mcL (3.82-4.97); Red Cell Distribution Width 16.7 % (11.5-14.5); Segmented Neutrophils % 83.3 %; White Blood Count 15.9 K/mcL (4.3-11.1)
[2021-07-08 05:59] LABS: VBG Ionized Calcium 0.93 mmol/L (1.15-1.35)
[2021-07-08 06:03] LABS: INR 2.9; Prothrombin Time 32.2 Seconds (9.4-12.1)
[2021-07-08 06:14] LABS: Albumin 3.4 g/dL (3.5-5.7); Albumin/Globulin Ratio 1.7 (1.1-2.2); Bilirubin,Total 1.9 mg/dL (0.3-1.0); Calcium 7.4 mg/dL (8.6-10.3); Magnesium 1.8 mg/dL (1.6-2.6); Phosphorous 4.5 mg/dL (2.7-4.5); Potassium 3.4 mEq/L (3.5-5.1); Total Protein 5.4 g/dL (6.4-8.9)
[2021-07-08] MEDS ORDERED: 0.9 % Sodium Chloride 1,000 ML IVC ONE (06:26)
[2021-07-08] MEDS: Pantoprazole 40 MG VIAL IVC SCH ×2 (07:30→19:21)
[2021-07-08] MEDS ORDERED: *HR* Metoprolol 5 MG/5 ML VIAL IVP ONE ×2 (07:53)
[2021-07-08] MEDS ORDERED: Ondansetron 4 MG/2 ML VIAL IVP PRN (08:00)
[2021-07-08] MEDS ORDERED: Perflutren Lipid Microsphere 1.3 ML in 0.9 % Sodium Chloride 8.7 ML IVP PRN (10:54)
[2021-07-08] MEDS: *HR* Metoprolol 5 MG/5 ML VIAL IVP SCH ×2 (11:05→17:52)
[2021-07-08] MEDS: carBAMazepine 200 MG TABLET PO SCH (11:05)
[2021-07-08 11:44] LABS: ABG Ionized Calcium 1.05 mmol/L (1.15-1.35)
[2021-07-08 11:44] LABS: Hematocrit 26.6 % (35.3-44.9); Mean Corpuscular HGB Conc 33.8 g/dL (31.6-35.5); Mean Corpuscular Hemoglobin 29.5 pg (28.0-33.3); Mean Corpuscular Volume 87.2 fL (83.0-100.0); Mean Platelet Volume 9.2 fL (9.4-12.4); Platelet Count 260 K/mcL (140-400); Red Blood Count 3.05 M/mcL (3.82-4.97); Red Cell Distribution Width 17.1 % (11.5-14.5); White Blood Count 15.8 K/mcL (4.3-11.1)
[2021-07-08 11:52] LABS: INR 2.4; Prothrombin Time 27.1 Seconds (9.4-12.1)
[2021-07-08 11:56] LABS: Calcium 8.2 mg/dL (8.6-10.3); Potassium 3.4 mEq/L (3.5-5.1)
[2021-07-08 12:08] LABS: Sodium, Urine 20.5 mEq/L
[2021-07-08] MEDS: Calcium Gluconate 1gm/50mL 1 GM/50 ML BAG IVPB SCH ×2 (12:38→13:38)
[2021-07-08 18:19] LABS: VBG Ionized Calcium 1.06 mmol/L (1.15-1.35)
[2021-07-08 18:20] LABS: Hematocrit 24.9 % (35.3-44.9); Hemoglobin 8.4 g/dL (11.5-15.4)
[2021-07-08 18:38] LABS: Calcium 8.2 mg/dL (8.6-10.3); Potassium 3.6 mEq/L (3.5-5.1)
[2021-07-08] MEDS ORDERED: Calcium Gluconate 1gm/50mL 1 GM/50 ML BAG IVPB ONE (19:06)
[2021-07-08] MEDS ORDERED: Midazolam HCl 50 MG/50 ML IV.SOLN IVC SCH (21:45)
[2021-07-09] MEDS: *HR* Metoprolol 5 MG/5 ML VIAL IVP SCH ×5 (00:05→23:53)
[2021-07-09] MEDS: Piperacillin/Tazobactam 3.375 GM in 0.9 % Sodium Chloride Mini Bag 100 ML IVPB SCH ×2 (00:05→06:13)
[2021-07-09] MEDS: Norepinephrine 4 MG/254 ML IV.SOLN IVC SCH ×6 (00:22→21:19)
[2021-07-09] MEDS ORDERED: Vancomycin 1,250 MG/262.5 ML IV.SOLN IVPB ONE (01:00)
[2021-07-09 01:29] LABS: Magnesium 1.8 mg/dL (1.6-2.6); Potassium 3.6 mEq/L (3.5-5.1)
[2021-07-09] MEDS: Albumin Human 5% 12.5 GM/250 ML IV.SOLN IVC SCH ×5 (02:05→18:48)
[2021-07-09 04:22] LABS: VBG Ionized Calcium 1.08 mmol/L (1.15-1.35)
[2021-07-09 04:35] LABS: Basophils % 0.2 %; Eosinophils % 0.4 %; Hematocrit 23.4 % (35.3-44.9); Hemoglobin 7.7 g/dL (11.5-15.4); Lymphocytes # 0.9 K/mcL (0.6-4.6); Lymphocytes % 9.2 %; Mean Corpuscular HGB Conc 32.9 g/dL (31.6-35.5); Mean Corpuscular Hemoglobin 29.5 pg (28.0-33.3); Mean Corpuscular Volume 89.7 fL (83.0-100.0); Mean Platelet Volume 9.2 fL (9.4-12.4); Monocytes # 0.8 K/mcL (0.0-1.3); Monocytes % 8.4 %; Neutrophils # 7.5 K/mcL (1.6-8.9); Nucleated Red Blood Cells 0.6 /100 WBC (0); Platelet Count 220 K/mcL (140-400); Red Blood Count 2.61 M/mcL (3.82-4.97); Red Cell Distribution Width 17.2 % (11.5-14.5); Segmented Neutrophils % 80.8 %; White Blood Count 9.3 K/mcL (4.3-11.1)
[2021-07-09 04:39] LABS: INR 1.3; Prothrombin Time 14.1 Seconds (9.4-12.1)
[2021-07-09 04:49] LABS: Magnesium 1.8 mg/dL (1.6-2.6); Phosphorous 4.4 mg/dL (2.7-4.5)
[2021-07-09] MEDS ORDERED: Potassium Chloride Elixir 20 MEQ/15 ML UDC PO ONE (06:11)
[2021-07-09] MEDS: Calcium Gluconate 1gm/50mL 1 GM/50 ML BAG IVPB SCH ×2 (06:21→07:23)
[2021-07-09] MEDS: Pantoprazole 40 MG VIAL IVC SCH (08:40)
[2021-07-09] MEDS: carBAMazepine 200 MG TABLET PO SCH (08:40)
[2021-07-09] MEDS ORDERED: 0.9 % Sodium Chloride 1,000 ML ONE (09:48)
[2021-07-09 11:46] LABS: VBG Ionized Calcium 1.17 mmol/L (1.15-1.35)
[2021-07-09 12:07] LABS: Calcium 8.7 mg/dL (8.6-10.3); Magnesium 2.2 mg/dL (1.6-2.6); Phosphorous 3.9 mg/dL (2.7-4.5); Potassium 3.8 mEq/L (3.5-5.1)
[2021-07-09 15:21] LABS: Hematocrit 22.8 % (35.3-44.9); Hemoglobin 7.4 g/dL (11.5-15.4)
[2021-07-09] MEDS: cefTRIAXone 2,000 MG in 0.9 % Sodium Chloride 20 ML IVP SCH (18:04)
[2021-07-09] MEDS: Pantoprazole 40 MG VIAL IVP SCH (20:10)
[2021-07-09 20:47] LABS: Hematocrit 22.2 % (35.3-44.9); Hemoglobin 7.4 g/dL (11.5-15.4)
[2021-07-10 03:19] LABS: Hemoglobin 7.7 g/dL (11.5-15.4)
[2021-07-10 03:22] LABS: Albumin 3.9 g/dL (3.5-5.7); Albumin/Globulin Ratio 1.9 (1.1-2.2); Bilirubin,Total 1.4 mg/dL (0.3-1.0); Calcium 8.5 mg/dL (8.6-10.3); Globulin 2.1 g/dL (2.4-3.5); Potassium 3.4 mEq/L (3.5-5.1)
[2021-07-10] MEDS: *HR* Metoprolol 5 MG/5 ML VIAL IVP SCH ×3 (05:04→19:28)
[2021-07-10] MEDS: cefTRIAXone 2,000 MG in 0.9 % Sodium Chloride 20 ML IVP SCH (08:26)
[2021-07-10] MEDS: carBAMazepine 200 MG TABLET PO SCH (08:26)
[2021-07-10] MEDS: Pantoprazole 40 MG VIAL IVP SCH ×2 (08:27→20:54)
[2021-07-10] MEDS: Norepinephrine 4 MG/254 ML IV.SOLN IVC SCH (10:24)
[2021-07-10 10:51] LABS: Basophils % 0.1 %; Eosinophils # 0.2 K/mcL (0.0-0.6); Eosinophils % 1.8 %; Hematocrit 23.7 % (35.3-44.9); Hemoglobin 7.8 g/dL (11.5-15.4); Immature Granulocytes % 0.8 % (0-4); Lymphocytes # 0.8 K/mcL (0.6-4.6); Lymphocytes % 10.1 %; Mean Corpuscular HGB Conc 32.9 g/dL (31.6-35.5); Mean Corpuscular Hemoglobin 29.9 pg (28.0-33.3); Mean Corpuscular Volume 90.8 fL (83.0-100.0); Mean Platelet Volume 9.2 fL (9.4-12.4); Monocytes # 0.5 K/mcL (0.0-1.3); Monocytes % 6.6 %; Neutrophils # 6.6 K/mcL (1.6-8.9); Nucleated Red Blood Cells 2.1 /100 WBC (0); Platelet Count 208 K/mcL (140-400); Red Blood Count 2.61 M/mcL (3.82-4.97); Red Cell Distribution Width 17.3 % (11.5-14.5); Segmented Neutrophils % 80.6 %; White Blood Count 8.2 K/mcL (4.3-11.1)
[2021-07-10] MEDS ORDERED: Naloxone 0.4 MG/ML INJ IVP PRN (14:17)
[2021-07-10] MEDS ORDERED: Ondansetron 4 MG/2 ML VIAL IVP PRN (14:17)
[2021-07-10] MEDS ORDERED: Dextrose 4 GM Chewable Tablets PO PRN ×2 (14:17)
[2021-07-10] MEDS ORDERED: D5% in Water 1,000 ML IVC PRN (14:17)
[2021-07-10] MEDS ORDERED: Acetaminophen 325 MG TABLET PO PRN (14:17)
[2021-07-10] MEDS ORDERED: *HR* Dextrose 50 % in Water (Syg) 50 ML SYRINGE IVP PRN (14:17)
[2021-07-10] MEDS ORDERED: *HR* OxyCODONE Immed Rel 5 MG TABLET PO PRN (14:17)
[2021-07-10 19:14] LABS: Hematocrit 27.1 % (35.3-44.9); Hemoglobin 8.8 g/dL (11.5-15.4)
[2021-07-11] MEDS: *HR* Metoprolol 5 MG/5 ML VIAL IVP SCH ×3 (00:13→11:53)
[2021-07-11 01:20] LABS: Hemoglobin 8.7 g/dL (11.5-15.4)
[2021-07-11 01:30] LABS: INR 1.1; Prothrombin Time 12.6 Seconds (9.4-12.1)
[2021-07-11 01:33] LABS: Activated Partial Thrombo Time 25.8 Seconds (26.0-36.0)
[2021-07-11 07:38] LABS: Hematocrit 23.9 % (35.3-44.9); Hemoglobin 7.9 g/dL (11.5-15.4)
[2021-07-11 07:40] LABS: Calcium 8.6 mg/dL (8.6-10.3); Potassium 3.5 mEq/L (3.5-5.1)
[2021-07-11] MEDS: Pantoprazole 40 MG VIAL IVP SCH ×2 (07:44→20:42)
[2021-07-11] MEDS: carBAMazepine 200 MG TABLET PO SCH (07:44)
[2021-07-11] MEDS ORDERED: cefTRIAXone 2,000 MG in 0.9 % Sodium Chloride 20 ML IVP SCH (09:00)
[2021-07-11] MEDS ORDERED: *HR* Metoprolol 5 MG/5 ML VIAL IVP ONE (14:52)
[2021-07-11] MEDS ORDERED: *HR* Succinylcholine 200 MG/10 ML VIAL IVP ONE (14:56)
[2021-07-11] MEDS ORDERED: Lidocaine -MPF 2% 2 ML VIAL ONE (14:56)
[2021-07-11 16:53] LABS: Hematocrit 26.2 % (35.3-44.9); Hemoglobin 8.3 g/dL (11.5-15.4)
[2021-07-11 18:30] LABS: Hematocrit 26.4 % (35.3-44.9); Hemoglobin 8.5 g/dL (11.5-15.4)
[2021-07-11 20:41] LABS: Hematocrit 27.4 % (35.3-44.9); Hemoglobin 8.9 g/dL (11.5-15.4)
[2021-07-12 04:39] LABS: Basophils % 0.4 %; Eosinophils # 0.2 K/mcL (0.0-0.6); Eosinophils % 2.8 %; Hematocrit 25.8 % (35.3-44.9); Hemoglobin 8.3 g/dL (11.5-15.4); Immature Granulocytes % 1.4 % (0-4); Lymphocytes # 0.9 K/mcL (0.6-4.6); Lymphocytes % 11.6 %; Mean Corpuscular HGB Conc 32.2 g/dL (31.6-35.5); Mean Corpuscular Hemoglobin 29.9 pg (28.0-33.3); Mean Corpuscular Volume 92.8 fL (83.0-100.0); Mean Platelet Volume 9.1 fL (9.4-12.4); Monocytes # 0.7 K/mcL (0.0-1.3); Monocytes % 8.8 %; Nucleated Red Blood Cells 2.1 /100 WBC (0); Platelet Count 285 K/mcL (140-400); Red Blood Count 2.78 M/mcL (3.82-4.97); Red Cell Distribution Width 17.6 % (11.5-14.5)
[2021-07-12 04:54] LABS: Alanine Aminotransferase 10 Units/L (7-52); Albumin 3.4 g/dL (3.5-5.7); Albumin/Globulin Ratio 1.3 (1.1-2.2); Alkaline Phosphatase 73 Units/L (34-104); Aspartate Amino Transferase 18 Units/L (13-39); BUN/Creatinine Ratio 22 (6-26); Bilirubin,Total 1.8 mg/dL (0.3-1.0); Blood Urea Nitrogen 20 mg/dL (8-23); Calcium 8.5 mg/dL (8.6-10.3); Carbon Dioxide 21 mEq/L (23-29); Chloride 106 mEq/L (98-107); Globulin 2.6 g/dL (2.4-3.5); Glucose 146 mg/dL (70-105); Osmolality,Calculated 287 (280-300); Potassium 3.4 mEq/L (3.5-5.1); Sodium 136 mEq/L (136-145); eGFR For African Americans > 60 (> 60); eGFR For Non-African Americans 60 (> 60)
[2021-07-12] MEDS: Pantoprazole 40 MG VIAL IVP SCH (08:29)
[2021-07-12] MEDS: carBAMazepine 200 MG TABLET PO SCH (08:30)
[2021-07-12] MEDS ORDERED: Metoprolol XL (24 HR) Succ 50 MG TAB.ER.24H PO SCH (09:00)
[2021-07-12 09:48] LABS: Hematocrit 26.8 % (35.3-44.9); Hemoglobin 8.6 g/dL (11.5-15.4)
[2021-07-12 11:07] VITALS: PULSE 103; O2SAT 98
[2021-07-12 13:23] VITALS: BP 151/79; TEMP 97.6
[2021-07-12 14:44] LABS: Hemoglobin 8.5 g/dL (11.5-15.4)
== END 2021-07-12 15:50 | DRG 813 ==
LOC: EMEROOARM 09:32 → SUATTDRO 21:10 → ICNU 21:10 → 2NENU 07-10 14:06
PROVIDERS: ADMIT Family Medicine; ATTEND Family Medicine
PROC: ENDOEBX (2021-07-11 14:20)

== ENCOUNTER 2021-08-21 10:35 | Inpatient (IN) ==
[2021-08-21 11:44] LABS: Basophils % 0.4 %; Eosinophils # 0.1 K/mcL (0.0-0.6); Eosinophils % 0.9 %; Hematocrit 41.4 % (35.3-44.9); Hemoglobin 13.9 g/dL (11.5-15.4); Immature Granulocytes % 0.3 % (0-4); Lymphocytes # 1.4 K/mcL (0.6-4.6); Lymphocytes % 20.7 %; Mean Corpuscular HGB Conc 33.6 g/dL (31.6-35.5); Mean Corpuscular Volume 95.2 fL (83.0-100.0); Monocytes # 0.6 K/mcL (0.0-1.3); Monocytes % 9.2 %; Neutrophils # 4.8 K/mcL (1.6-8.9); Platelet Count 245 K/mcL (140-400); Red Blood Count 4.35 M/mcL (3.82-4.97); Red Cell Distribution Width 21.1 % (11.5-14.5); Segmented Neutrophils % 68.5 %
[2021-08-21] MEDS ORDERED: Isovue-370 500 ML BOTTLE IVP ONE (12:30)
[2021-08-21 13:06] LABS: Alanine Aminotransferase 37 Units/L (7-52); Albumin 3.4 g/dL (3.5-5.7); Albumin/Globulin Ratio 0.9 (1.1-2.2); Alkaline Phosphatase 82 Units/L (34-104); Aspartate Amino Transferase 56 Units/L (13-39); BUN/Creatinine Ratio 14 (6-26); Bilirubin,Total 2.7 mg/dL (0.3-1.0); Blood Urea Nitrogen 14 mg/dL (8-23); Calcium 7.4 mg/dL (8.6-10.3); Carbon Dioxide 27 mEq/L (23-29); Chloride 92 mEq/L (98-107); Globulin 3.6 g/dL (2.4-3.5); Glucose 113 mg/dL (70-105); Lipase 37 Units/L (11-82); Osmolality,Calculated 283 (280-300); Potassium 2.9 mEq/L (3.5-5.1); Sodium 136 mEq/L (136-145); eGFR For African Americans > 60 (> 60); eGFR For Non-African Americans 55 (> 60)
[2021-08-21] MEDS: Calcium Gluconate 1gm/50mL 1 GM/50 ML BAG IVPB SCH ×2 (14:19→18:13)
[2021-08-21] MEDS ORDERED: Naloxone 0.4 MG/ML INJ IVP PRN (14:46)
[2021-08-21] MEDS ORDERED: Melatonin 3 MG TABLET PO PRN (14:46)
[2021-08-21] MEDS: 0.9 % Sodium Chloride 1,000 ML IVC SCH ×2 (15:59→19:41)
[2021-08-21] MEDS: Metoprolol XL (24 HR) Succ 50 MG TAB.ER.24H PO SCH (18:27)
[2021-08-21] MEDS: carBAMazepine 200 MG TABLET PO SCH (21:05)
[2021-08-22 03:16] LABS: Basophils % 0.4 %; Eosinophils # 0.1 K/mcL (0.0-0.6); Eosinophils % 1.7 %; Hematocrit 37.2 % (35.3-44.9); Hemoglobin 12.4 g/dL (11.5-15.4); Immature Granulocytes % 0.3 % (0-4); Lymphocytes # 1.4 K/mcL (0.6-4.6); Lymphocytes % 19.6 %; Mean Corpuscular HGB Conc 33.3 g/dL (31.6-35.5); Mean Corpuscular Hemoglobin 31.6 pg (28.0-33.3); Mean Corpuscular Volume 94.7 fL (83.0-100.0); Mean Platelet Volume 9.6 fL (9.4-12.4); Monocytes # 0.7 K/mcL (0.0-1.3); Monocytes % 10.4 %; Neutrophils # 4.7 K/mcL (1.6-8.9); Platelet Count 288 K/mcL (140-400); Red Blood Count 3.93 M/mcL (3.82-4.97); Red Cell Distribution Width 20.5 % (11.5-14.5); Segmented Neutrophils % 67.6 %
[2021-08-22 03:42] LABS: BUN/Creatinine Ratio 11 (6-26); Blood Urea Nitrogen 10 mg/dL (8-23); Calcium 6.8 mg/dL (8.6-10.3); Carbon Dioxide 29 mEq/L (23-29); Chloride 93 mEq/L (98-107); Glucose 89 mg/dL (70-105); Magnesium 0.7 mg/dL (1.6-2.6); Osmolality,Calculated 281 (280-300); Sodium 136 mEq/L (136-145); eGFR For African Americans > 60 (> 60); eGFR For Non-African Americans 59 (> 60)
[2021-08-22] MEDS ORDERED: lisinopriL 5 MG TABLET PO SCH (09:00)
[2021-08-22] MEDS: carBAMazepine 200 MG TABLET PO SCH (09:20)
[2021-08-22] MEDS: Metoprolol XL (24 HR) Succ 50 MG TAB.ER.24H PO SCH (09:20)
[2021-08-22] MEDS: Pantoprazole 40 MG VIAL IVP SCH ×2 (09:26→17:05)
[2021-08-22] MEDS ORDERED: Potassium Chloride Elixir 20 MEQ/15 ML UDC PO SCH (10:00)
[2021-08-22] MEDS: Ondansetron 4 MG/2 ML VIAL IVP PRN ×2 (10:07→21:42)
[2021-08-22] MEDS ORDERED: Lidocaine -MPF 2% 2 ML VIAL ONE (12:36)
[2021-08-22] MEDS ORDERED: *HR* Propofol 200 MG/20 ML VIAL IVP ONE (12:36)
[2021-08-22] MEDS ORDERED: Melatonin 3 MG TABLET GTUBE PRN (14:15)
[2021-08-22] MEDS ORDERED: *HR* Metoprolol 5 MG/5 ML VIAL IVP ONE (14:37)
[2021-08-22] MEDS: Potassium Chloride Elixir 20 MEQ/15 ML UDC GTUBE SCH (21:21)
[2021-08-23 03:04] LABS: Basophils % 0.2 %; Eosinophils # 0.1 K/mcL (0.0-0.6); Eosinophils % 0.9 %; Hematocrit 36.7 % (35.3-44.9); Hemoglobin 12.3 g/dL (11.5-15.4); Immature Granulocytes % 0.4 % (0-4); Lymphocytes # 1.1 K/mcL (0.6-4.6); Lymphocytes % 10.5 %; Mean Corpuscular HGB Conc 33.5 g/dL (31.6-35.5); Mean Corpuscular Hemoglobin 32.4 pg (28.0-33.3); Mean Corpuscular Volume 96.6 fL (83.0-100.0); Mean Platelet Volume 9.6 fL (9.4-12.4); Monocytes # 0.6 K/mcL (0.0-1.3); Monocytes % 6.3 %; Neutrophils # 8.2 K/mcL (1.6-8.9); Nucleated Red Blood Cells 0.2 /100 WBC (0); Platelet Count 271 K/mcL (140-400); Red Cell Distribution Width 21.2 % (11.5-14.5); Segmented Neutrophils % 81.7 %; White Blood Count 10.1 K/mcL (4.3-11.1)
[2021-08-23 03:29] LABS: Magnesium 1.1 mg/dL (1.6-2.6); Phosphorous 1.9 mg/dL (2.7-4.5)
[2021-08-23 03:34] LABS: BUN/Creatinine Ratio 10 (6-26); Blood Urea Nitrogen 9 mg/dL (8-23); Calcium 6.8 mg/dL (8.6-10.3); Carbon Dioxide 26 mEq/L (23-29); Chloride 94 mEq/L (98-107); Glucose 143 mg/dL (70-105); Osmolality,Calculated 283 (280-300); Potassium 2.5 mEq/L (3.5-5.1); Sodium 136 mEq/L (136-145); eGFR For African Americans > 60 (> 60); eGFR For Non-African Americans > 60 (> 60)
[2021-08-23] MEDS: Pantoprazole 40 MG VIAL IVP SCH ×2 (06:55→16:53)
[2021-08-23] MEDS ORDERED: Potassium Phosphate 44 MEQ in 0.9 % Sodium Chloride 250 ML IVPB ONE (08:17)
[2021-08-23] MEDS ORDERED: Potassium Chloride Elixir 20 MEQ/15 ML UDC GTUBE SCH (09:00)
[2021-08-23] MEDS: lisinopriL 5 MG TABLET GTUBE SCH (09:22)
[2021-08-23] MEDS: Potassium Chloride Elixir 20 MEQ/15 ML UDC GTUBE SCH ×2 (09:22→23:18)
[2021-08-23] MEDS: Ondansetron 4 MG/2 ML VIAL IVP PRN ×3 (09:25→22:47)
[2021-08-24 04:59] LABS: Basophils % 0.3 %; Eosinophils # 0.2 K/mcL (0.0-0.6); Eosinophils % 3.1 %; Hematocrit 35.1 % (35.3-44.9); Hemoglobin 11.5 g/dL (11.5-15.4); Immature Granulocytes % 0.2 % (0-4); Lymphocytes % 16.1 %; Mean Corpuscular HGB Conc 32.8 g/dL (31.6-35.5); Mean Corpuscular Hemoglobin 32.1 pg (28.0-33.3); Mean Platelet Volume 9.6 fL (9.4-12.4); Monocytes # 0.6 K/mcL (0.0-1.3); Monocytes % 10.4 %; Neutrophils # 4.3 K/mcL (1.6-8.9); Platelet Count 241 K/mcL (140-400); Red Blood Count 3.58 M/mcL (3.82-4.97); Red Cell Distribution Width 21.4 % (11.5-14.5); Segmented Neutrophils % 69.9 %; White Blood Count 6.2 K/mcL (4.3-11.1)
[2021-08-24 05:19] LABS: BUN/Creatinine Ratio 13 (6-26); Blood Urea Nitrogen 12 mg/dL (8-23); Calcium 6.9 mg/dL (8.6-10.3); Carbon Dioxide 33 mEq/L (23-29); Chloride 99 mEq/L (98-107); Glucose 213 mg/dL (70-105); Magnesium 1.3 mg/dL (1.6-2.6); Osmolality,Calculated 294 (280-300); Phosphorous 1.5 mg/dL (2.7-4.5); Potassium 2.6 mEq/L (3.5-5.1); Sodium 139 mEq/L (136-145); eGFR For African Americans > 60 (> 60); eGFR For Non-African Americans > 60 (> 60)
[2021-08-24] MEDS: Pantoprazole 40 MG VIAL IVP SCH (06:54)
[2021-08-24] MEDS ORDERED: Potassium Phosphate 44 MEQ in 0.9 % Sodium Chloride 250 ML IVPB ONE (07:47)
[2021-08-24] MEDS: lisinopriL 5 MG TABLET GTUBE SCH (08:28)
[2021-08-24] MEDS: Potassium Chloride Elixir 20 MEQ/15 ML UDC GTUBE SCH ×2 (08:28→21:23)
[2021-08-24] MEDS: Ondansetron 4 MG/2 ML VIAL IVP PRN ×2 (08:28→20:10)
[2021-08-25] MEDS: lisinopriL 5 MG TABLET GTUBE SCH (09:41)
[2021-08-25] MEDS: Potassium Chloride Elixir 20 MEQ/15 ML UDC GTUBE SCH (09:41)
[2021-08-25 11:58] LABS: Basophils % 0.4 %; Eosinophils # 0.2 K/mcL (0.0-0.6); Hematocrit 37.6 % (35.3-44.9); Immature Granulocytes % 0.2 % (0-4); Lymphocytes # 1.1 K/mcL (0.6-4.6); Lymphocytes % 20.4 %; Mean Corpuscular HGB Conc 31.9 g/dL (31.6-35.5); Mean Corpuscular Hemoglobin 31.8 pg (28.0-33.3); Mean Corpuscular Volume 99.7 fL (83.0-100.0); Mean Platelet Volume 9.9 fL (9.4-12.4); Monocytes # 0.4 K/mcL (0.0-1.3); Monocytes % 7.8 %; Neutrophils # 3.6 K/mcL (1.6-8.9); Nucleated Red Blood Cells 0.4 /100 WBC (0); Platelet Count 245 K/mcL (140-400); Red Blood Count 3.77 M/mcL (3.82-4.97); Red Cell Distribution Width 21.6 % (11.5-14.5); Segmented Neutrophils % 68.2 %; White Blood Count 5.3 K/mcL (4.3-11.1)
[2021-08-25 12:24] LABS: BUN/Creatinine Ratio 14 (6-26); Blood Urea Nitrogen 12 mg/dL (8-23); Calcium 7.1 mg/dL (8.6-10.3); Carbon Dioxide 28 mEq/L (23-29); Chloride 99 mEq/L (98-107); Glucose 219 mg/dL (70-105); Magnesium 1.4 mg/dL (1.6-2.6); Osmolality,Calculated 286 (280-300); Phosphorous 1.7 mg/dL (2.7-4.5); Potassium 3.7 mEq/L (3.5-5.1); Sodium 135 mEq/L (136-145); eGFR For African Americans > 60 (> 60); eGFR For Non-African Americans > 60 (> 60)
[2021-08-25] MEDS ORDERED: Potassium Phosphate 44 MEQ in 0.9 % Sodium Chloride 250 ML IVPB ONE (12:33)
[2021-08-26 07:01] LABS: BUN/Creatinine Ratio 15 (6-26); Blood Urea Nitrogen 11 mg/dL (8-23); Calcium 7.6 mg/dL (8.6-10.3); Carbon Dioxide 27 mEq/L (23-29); Chloride 99 mEq/L (98-107); Glucose 146 mg/dL (70-105); Magnesium 1.5 mg/dL (1.6-2.6); Osmolality,Calculated 284 (280-300); Phosphorous 2.7 mg/dL (2.7-4.5); Sodium 136 mEq/L (136-145); eGFR For African Americans > 60 (> 60); eGFR For Non-African Americans > 60 (> 60)
[2021-08-26] MEDS: lisinopriL 5 MG TABLET GTUBE SCH (08:59)
[2021-08-26] MEDS ORDERED: Magnesium Oxide 400 MG TABLET PO SCH (09:00)
[2021-08-26 11:38] VITALS: BP 131/79; PULSE 80; TEMP 97.4; O2SAT 95
== END 2021-08-26 15:08 | disposition home or self-care (01) | DRG 392 ==
LOC: EMEROOARM 10:35 → 3ANU 10:35 → SUATTDRO 14:34 → 3ANU 15:29
PROVIDERS: ADMIT Internal Medicine; ATTEND Family Medicine
PROC: ENDOEBX (2021-08-22 14:15)

== ENCOUNTER 2021-09-27 20:26 | Inpatient (IN) ==
[2021-09-27 21:24] LABS: Basophils % 0.5 %; Eosinophils # 0.1 K/mcL (0.0-0.6); Eosinophils % 0.8 %; Hematocrit 41.8 % (35.3-44.9); Hemoglobin 14.4 g/dL (11.5-15.4); Immature Granulocytes % 0.2 % (0-4); Lymphocytes # 1.7 K/mcL (0.6-4.6); Lymphocytes % 26.6 %; Mean Corpuscular HGB Conc 34.4 g/dL (31.6-35.5); Mean Corpuscular Hemoglobin 32.4 pg (28.0-33.3); Mean Corpuscular Volume 93.9 fL (83.0-100.0); Monocytes # 0.6 K/mcL (0.0-1.3); Monocytes % 9.4 %; Platelet Count 260 K/mcL (140-400); Red Blood Count 4.45 M/mcL (3.82-4.97); Segmented Neutrophils % 62.5 %; White Blood Count 6.5 K/mcL (4.3-11.1)
[2021-09-27 21:46] LABS: Calcium 8.1 mg/dL (8.6-10.3); Potassium 2.1 mEq/L (3.5-5.1)
[2021-09-27] MEDS ORDERED: Potassium Chloride Elixir 20 MEQ/15 ML UDC PO ONE (22:00)
[2021-09-27 23:02] LABS: Magnesium 0.9 mg/dL (1.6-2.6)
[2021-09-27] MEDS ORDERED: 0.9 % Sodium Chloride 1,000 ML ONE (23:03)
[2021-09-27] MEDS ORDERED: Ondansetron 4 MG/2 ML VIAL IVP ONE (23:50)
[2021-09-28] MEDS ORDERED: Naloxone 0.4 MG/ML INJ IVP PRN (01:34)
[2021-09-28] MEDS ORDERED: Ondansetron 4 MG/2 ML VIAL IVP PRN (01:34)
[2021-09-28] MEDS ORDERED: Acetaminophen 325 MG TABLET PO PRN (01:34)
[2021-09-28] MEDS ORDERED: Melatonin 3 MG TABLET PO PRN (01:34)
[2021-09-28] MEDS ORDERED: Magnesium Sulfate 1 GM/102 ML PIGGYBACK IVPB ONE (02:32)
[2021-09-28] MEDS ORDERED: D5% in Water 1,000 ML IVC PRN (02:37)
[2021-09-28] MEDS ORDERED: Dextrose Gel 15 GM/37.5 ML TUBE PO PRN ×2 (02:37)
[2021-09-28] MEDS ORDERED: *HR* Dextrose 50 % in Water (Syg) 50 ML SYRINGE IVP PRN (02:37)
[2021-09-28 03:02] LABS: Calcium 7.6 mg/dL (8.6-10.3); Potassium 2.8 mEq/L (3.5-5.1)
[2021-09-28] MEDS ORDERED: Calcium Gluconate 1gm/50mL 1 GM/50 ML BAG IVPB ONE (04:59)
[2021-09-28] MEDS: 0.9 % Sodium Chloride w KCl 40 MEQ/1,000 ML MLS IVC SCH ×2 (05:08→10:34)
[2021-09-28] MEDS: Insulin LISPRO 300 UNITS/3 ML VIAL SUBQ SCH ×4 (07:11→20:27)
[2021-09-28 08:29] LABS: Basophils % 0.1 %; Eosinophils # 0.1 K/mcL (0.0-0.6); Eosinophils % 0.7 %; Hematocrit 41.5 % (35.3-44.9); Hemoglobin 14.1 g/dL (11.5-15.4); Immature Granulocytes % 0.1 % (0-4); Lymphocytes # 1.7 K/mcL (0.6-4.6); Lymphocytes % 24.6 %; Mean Corpuscular Hemoglobin 32.9 pg (28.0-33.3); Mean Corpuscular Volume 96.7 fL (83.0-100.0); Mean Platelet Volume 9.5 fL (9.4-12.4); Monocytes # 0.6 K/mcL (0.0-1.3); Neutrophils # 4.5 K/mcL (1.6-8.9); Platelet Count 254 K/mcL (140-400); Red Blood Count 4.29 M/mcL (3.82-4.97); Red Cell Distribution Width 17.1 % (11.5-14.5); Segmented Neutrophils % 65.5 %; White Blood Count 6.9 K/mcL (4.3-11.1)
[2021-09-28 08:54] LABS: Albumin 3.1 g/dL (3.5-5.7); Calcium 7.6 mg/dL (8.6-10.3); Potassium 2.5 mEq/L (3.5-5.1)
[2021-09-28] MEDS ORDERED: Potassium Chloride Elixir 20 MEQ/15 ML UDC GTUBE ONE (08:57)
[2021-09-28 09:05] LABS: Bilirubin,Total 1.2 mg/dL (0.3-1.0); Globulin 3.2 g/dL (2.4-3.5); Magnesium 1.1 mg/dL (1.6-2.6); Phosphorous 1.8 mg/dL (2.7-4.5); Total Protein 6.3 g/dL (6.4-8.9)
[2021-09-28] MEDS ORDERED: Potassium Chloride Elixir 20 MEQ/15 ML UDC PO ONE (09:15)
[2021-09-28 18:55] LABS: Calcium 7.6 mg/dL (8.6-10.3); Potassium 3.5 mEq/L (3.5-5.1)
[2021-09-28] MEDS ORDERED: *HR* Metoprolol 5 MG/5 ML VIAL IVP ONE (23:27)
[2021-09-29 03:12] LABS: Hematocrit 36.5 % (35.3-44.9); Mean Corpuscular HGB Conc 34.2 g/dL (31.6-35.5); Mean Corpuscular Hemoglobin 32.8 pg (28.0-33.3); Mean Corpuscular Volume 95.8 fL (83.0-100.0); Mean Platelet Volume 9.7 fL (9.4-12.4); Platelet Count 201 K/mcL (140-400); Red Blood Count 3.81 M/mcL (3.82-4.97); Red Cell Distribution Width 17.4 % (11.5-14.5); White Blood Count 6.4 K/mcL (4.3-11.1)
[2021-09-29 03:13] LABS: Hemoglobin 12.5 g/dL (11.5-15.4)
[2021-09-29 03:21] LABS: BUN/Creatinine Ratio 14 (6-26); Blood Urea Nitrogen 15 mg/dL (8-23); Calcium 7.6 mg/dL (8.6-10.3); Carbon Dioxide 24 mEq/L (23-29); Chloride 101 mEq/L (98-107); Glucose 172 mg/dL (70-105); Magnesium 1.9 mg/dL (1.6-2.6); Osmolality,Calculated 285 (280-300); Phosphorous 1.6 mg/dL (2.7-4.5); Potassium 2.9 mEq/L (3.5-5.1); Sodium 135 mEq/L (136-145); eGFR For African Americans > 60 (> 60); eGFR For Non-African Americans 51 (> 60)
[2021-09-29 08:01] LABS: Monocytes # 0.4 K/mcL (0.0-1.3); Platelet Estimate Normal (Normal)
[2021-09-29] MEDS: Insulin LISPRO 300 UNITS/3 ML VIAL SUBQ SCH ×4 (08:29→19:55)
[2021-09-29] MEDS: lisinopriL 5 MG TABLET PO SCH (08:31)
[2021-09-29] MEDS: Metoprolol XL (24 HR) Succ 50 MG TAB.ER.24H PO SCH (08:33)
[2021-09-29] MEDS: Potassium Chloride Elixir 20 MEQ/15 ML UDC GTUBE SCH ×2 (09:11→13:15)
[2021-09-29] MEDS: carBAMazepine 200 MG TABLET PO SCH (16:42)
[2021-09-30 01:56] LABS: BUN/Creatinine Ratio 14 (6-26); Basophils % 0.4 %; Blood Urea Nitrogen 13 mg/dL (8-23); Calcium 7.9 mg/dL (8.6-10.3); Carbon Dioxide 23 mEq/L (23-29); Chloride 100 mEq/L (98-107); Eosinophils # 0.2 K/mcL (0.0-0.6); Eosinophils % 3.6 %; Glucose 174 mg/dL (70-105); Hemoglobin 11.5 g/dL (11.5-15.4); Immature Granulocytes % 0.4 % (0-4); Lymphocytes # 1.3 K/mcL (0.6-4.6); Lymphocytes % 25.8 %; Mean Corpuscular HGB Conc 33.8 g/dL (31.6-35.5); Mean Corpuscular Hemoglobin 32.9 pg (28.0-33.3); Mean Corpuscular Volume 97.1 fL (83.0-100.0); Mean Platelet Volume 9.2 fL (9.4-12.4); Monocytes # 0.5 K/mcL (0.0-1.3); Monocytes % 9.5 %; Osmolality,Calculated 276 (280-300); Platelet Count 207 K/mcL (140-400); Potassium 3.3 mEq/L (3.5-5.1); Red Cell Distribution Width 17.5 % (11.5-14.5); Segmented Neutrophils % 60.3 %; Sodium 131 mEq/L (136-145); eGFR For African Americans > 60 (> 60); eGFR For Non-African Americans 58 (> 60)
[2021-09-30] MEDS: Metoprolol XL (24 HR) Succ 50 MG TAB.ER.24H PO SCH (08:51)
[2021-09-30] MEDS: lisinopriL 5 MG TABLET PO SCH (08:52)
[2021-09-30] MEDS: carBAMazepine 200 MG TABLET PO SCH (08:53)
[2021-09-30] MEDS: Insulin LISPRO 300 UNITS/3 ML VIAL SUBQ SCH ×4 (08:55→20:10)
[2021-09-30] MEDS: Potassium Chloride Elixir 20 MEQ/15 ML UDC GTUBE SCH ×2 (11:19→15:45)
[2021-10-01 08:22] LABS: BUN/Creatinine Ratio 14 (6-26); Blood Urea Nitrogen 14 mg/dL (8-23); Calcium 8.5 mg/dL (8.6-10.3); Carbon Dioxide 25 mEq/L (23-29); Chloride 97 mEq/L (98-107); Glucose 155 mg/dL (70-105); Osmolality,Calculated 274 (280-300); Potassium 4.3 mEq/L (3.5-5.1); Sodium 130 mEq/L (136-145); eGFR For African Americans > 60 (> 60); eGFR For Non-African Americans 56 (> 60)
[2021-10-01] MEDS: lisinopriL 5 MG TABLET PO SCH (08:54)
[2021-10-01] MEDS: Metoprolol XL (24 HR) Succ 50 MG TAB.ER.24H PO SCH (08:54)
[2021-10-01] MEDS: carBAMazepine 200 MG TABLET PO SCH (08:55)
[2021-10-01] MEDS: Insulin LISPRO 300 UNITS/3 ML VIAL SUBQ SCH ×4 (08:59→20:25)
[2021-10-02] MEDS: Insulin LISPRO 300 UNITS/3 ML VIAL SUBQ SCH ×2 (07:09→11:44)
[2021-10-02 07:12] VITALS: PULSE 83; TEMP 97.4
[2021-10-02 07:28] LABS: Bilirubin,Urine Negative (Negative); Blood,Urine Negative (Negative); Clarity,Urine Clear (Clear); Color,Urine Light-Yellow (Yellow); Glucose,Urine (UA) Normal (Normal); Ketones,Urine Negative (Negative); Leukocyte Esterase,Urine Trace (Negative); Mucus,Urine Few per lpf (None-Few); Nitrite,Urine Negative (Negative); PH,Urine 6.5 pH Units (5.0-8.0); Protein,Urine Negative (Neg-Trace); RBC,Urine 0-3 per hpf (0-3); Specific Gravity,Urine 1.005 (1.010-1.025); Squamous Epithelial Cell,Urine Few per hpf (None-Few); Urobilinogen,Urine Normal (Normal); WBC,Urine 0-3 per hpf (0-3)
[2021-10-02] MEDS: Metoprolol XL (24 HR) Succ 50 MG TAB.ER.24H PO SCH (08:25)
[2021-10-02] MEDS: lisinopriL 5 MG TABLET PO SCH (08:26)
[2021-10-02] MEDS: carBAMazepine 200 MG TABLET PO SCH (08:26)
[2021-10-02 10:33] VITALS: BP 107/73; O2SAT 97
[2021-10-02 11:09] LABS: BUN/Creatinine Ratio 15 (6-26); Blood Urea Nitrogen 15 mg/dL (8-23); Carbon Dioxide 26 mEq/L (23-29); Chloride 98 mEq/L (98-107); Glucose 145 mg/dL (70-105); Osmolality,Calculated 275 (280-300); Potassium 4.6 mEq/L (3.5-5.1); Sodium 131 mEq/L (136-145); eGFR For African Americans > 60 (> 60); eGFR For Non-African Americans 54 (> 60)
== END 2021-10-02 13:48 | disposition home health service (06) | DRG 641 ==
LOC: 3BNU 20:26 → EMEROOARM 20:26 → SUATTDRO 23:56 → 3BNU 09-28 00:48
PROVIDERS: ADMIT Internal Medicine; ATTEND Registered Nurse